=== PATIENT | female | born 1955 | race Caucasian/White ===

== ENCOUNTER 2016-12-19 17:06 | Emergency (ER) | payer MEDICARE ==
[2016-12-19 17:46] LABS: #Lymphocytes 1.2 thou/uL (1.20-3.40); #Monocytes 0.5 thou/uL (0.11-0.59); #Neutrophils 10.6 thou/uL (1.40-6.50); %Basophils 0.4 % (0.0-1.0); %Eosinophils 0.2 % (0.0-10.0); %Lymphocytes 9.9 % (21.0-51.0); %Monocytes 3.9 % (0.0-10.0); Hematocrit 41.5 % (36.0-47.0); Mean Platelet Volume 6.2 fL (7.4-10.4); Red Blood Cell (RBC) Count 4.35 mill/uL (4.20-5.40); White Blood Cell (WBC) Count 12.4 thou/uL (4.8-10.8)
[2016-12-19 18:11] LABS: ALT (SGPT) 27 U/L (8-55); AST (SGOT) 25 U/L (5-34); Alkaline Phosphatase 111 U/L (40-150); Anion Gap 18 mmol/L (10-20); BUN (Urea Nitrogen) 14 mg/dL (9.8-20.1); Bilirubin, Total 0.3 mg/dL (0.2-1.2); CK (CPK) 68 U/L (29-168); Calc. Creatinine Clearance 0 mL/min (70-130); Calcium 9.6 mg/dL (7.8-10.44); Carbon Dioxide 27 mmol/L (22-29); Chloride 100 mmol/L (98-107); Estimated GFR-MDRD 72; Globulin 3.4 g/dL (2.4-3.5); Protein, Total 7.8 g/dL (6.0-8.3)
[2016-12-19 18:14] LABS: Troponin I Less than 0.010 ng/mL (< 0.028)
--- NOTE | 2016-12-19 20:24 | RAD ---
PA AND LATERAL VIEWS OF THE CHEST: 12/19/16 HISTORY: Dyspnea. COPD. FINDINGS: Comparison is made with exam of 11/20/16. The heart size is normal. The aorta is tortuous. The lungs are expanded without focal areas of conso lidation, pneumothorax, bertha pulmonary edema or pleural effusions. Azygos lobe and fissure are agai n seen. There is scoliosis of the spine. IMPRESSION: Stable exam. No acute process. POS: [facility]
== END 2016-12-19 19:37 | disposition home or self-care (01) ==
LOC: ERS 17:06
DX: J44.9 Chronic obstructive pulmonary disease, unspecified (principal); J30.9 Allergic rhinitis, unspecified; F32.9 Major depressive disorder, single episode, unspecified; F41.0 Panic disorder [episodic paroxysmal anxiety]; Z87.891 Personal history of nicotine dependence
CPT/HCPCS: 36415; 71020; 80053; 82550; 82553; 83880; 84484; 85025; 85379; 93005; 94640; J7620

== ENCOUNTER 2017-04-24 11:18 | Day surgery (SDC) | payer MEDICARE ==
[2017-04-21 08:17] VITALS: BMI 26.5
[2017-04-24] MEDS ORDERED: Midazolam HCl 2 mg/2 ml Vial ONE (13:21)
[2017-04-24] MEDS ORDERED: PROPOFOL 200 MG/20 ML VIAL ONE (14:30)
[2017-04-24] MEDS ORDERED: Lidocaine 1% PF 5 ML VIAL ONE (14:30)
[2017-04-24] MEDS ORDERED: Ondansetron HCl/PF 4 MG/2 ML Vial IVP PRN (14:58)
--- NOTE | 2017-04-24 15:35 | OP ---
DATE OF PROCEDURE: 04/24/2017 PROCEDURE: Colonoscopy with polypectomy and control of hemorrhage. INDICATION FOR PROCEDURE: Screening for colorectal neoplasm. DESCRIPTION OF PROCEDURE: After the risks and benefits were explained to the patient including risks of bleeding, infection, perforation, reaction to anesthesia and/or pain, informed consent was obtained. The patient was then taken back to the endoscopy suite where deep sedation was administered via propofol and anesthesia support. The standard colonoscope was introduced into the rectum and advanced to the terminal ileum with the findings listed below. The prep quality was good. The patient tolerated the procedure well with no immediate perioperative complications. FINDINGS: Normal-appearing mucosa was seen in the terminal ileum. Normal mucosa was seen in the cecum, appendiceal orifice, and ileocecal valve. A 4 mm sessile/flat polyp was seen in the ascending colon and completely removed with cold snare polypectomy. It was retrieved and placed in specimen jar for evaluation for pathology. A second 3 mm flat polyp was also seen in the ascending colon, but not intervened upon during this examination. A 2-3 cm flat , speckled/darker colored polyp was seen in the distal ascending colon and removed via piecemeal fashion with hot snare polypectomy. The pieces were retrieved and placed in a different specimen jar for evaluation. The mucosal defect was then closed via approximation with Hemoclip x4 with good hemostasis achieved. Izabella ink was then injected in the area around the polyp with a tattoo placed for future reference. Normal-appearing mucosa was then seen in the transverse colon. Three additional polyps measuring between 3-4 mm in size were seen in the descending colon and completely removed with cold snare polypectomy and cold forceps biopsies. They were all retrieved and placed in a specimen jar for evaluation. Normal mucosa was seen in the sigmoid colon and rectum. On rectal retroflexion, there were no abnormalities noted. Rectal exam, small external hemorrhoids were seen on external examination without any evidence of bleeding. IMPRESSION: 1. Two ascending colon polyps, measuring 3-4 mm in size, one was completely removed, but the other one was not intervened upon during this examination. 2. A large 2-3 cm flat polyp was seen in the distal ascending colon and removed in a piecemeal fashion with hot snare polypectomy. The mucosal defect was approximated successfully with Hemoclip x4 with good hemostasis achieved. Tattoo was placed for future reference. 3. Three descending colon polyps, measuring 3-4 mm in size, removed completely with cold snare polypectomy and biopsy forceps. 4. Small external hemorrhoids. RECOMMENDATIONS: 1. Follow up in the GI clinic in approximately 2 weeks. 2. We will follow up on biopsy results. 3. We would recommend a repeat colonoscopy in 6 months given the piecemeal removal of the large polyp today. 4. Monitor clinically for signs of bleeding with instructions given to the patient if this were to happen. SPARKLE
== END 2017-04-24 16:32 | disposition home or self-care (01) ==
LOC: SDC 11:18
PROVIDERS: ATTEND Internal Medicine
PROC: 0DBK8ZX Excision of Ascending Colon, Via Natural or Artificial Opening Endoscopic, Diagnostic (ICD-10-PCS; principal; 2017-04-24)
PROC: 0DBM8ZX Excision of Descending Colon, Via Natural or Artificial Opening Endoscopic, Diagnostic (ICD-10-PCS; 2017-04-24)
DX: Z12.11 Encounter for screening for malignant neoplasm of colon (principal); D12.2 Benign neoplasm of ascending colon; D12.4 Benign neoplasm of descending colon; K64.4 Residual hemorrhoidal skin tags; K21.9 Gastro-esophageal reflux disease without esophagitis; K58.9 Irritable bowel syndrome, unspecified; F41.9 Anxiety disorder, unspecified; F32.9 Major depressive disorder, single episode, unspecified; R56.9 Unspecified convulsions; J98.4 Other disorders of lung; Z99.81 Dependence on supplemental oxygen; Z79.899 Other long term (current) drug therapy; Z88.5 Allergy status to narcotic agent; Z88.8 Allergy status to other drugs, medicaments and biological substances; Z90.711 Acquired absence of uterus with remaining cervical stump; Z98.890 Other specified postprocedural states; Z87.891 Personal history of nicotine dependence
CPT/HCPCS: 88305; J2001; J2250; J2704

== ENCOUNTER 2017-05-16 15:15 | Outpatient (CLI) | payer MEDICARE | END 2017-05-16 15:16 | disposition home or self-care (01) | LOC: BICMAMMO 15:15 | PROVIDERS: ATTEND Family Medicine | DX: Z12.31 Encounter for screening mammogram for malignant neoplasm of breast (principal) | CPT/HCPCS: 77063; 77067 ==